=== PATIENT | female | born 1980 | race Caucasian/White ===

== ENCOUNTER 2019-01-14 15:05 | Emergency (ER) | payer OTHER ==
[~2019-01-14] VITALS: Ht 170.2 cm; Wt 85.0 kg
[2019-01-14 15:11] VITALS: BP 170/100; PULSE 100; RESP 18; Ht 170.2 cm; Wt 85.0 kg
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
== END 2019-01-14 16:16 | disposition home or self-care (01) ==
LOC: E/R 15:05
DX: F41.9 Anxiety disorder, unspecified (principal); I10 Essential (primary) hypertension
CPT/HCPCS: 99283